=== PATIENT | male | born 1945 | race Caucasian/White ===

== ENCOUNTER 2019-03-08 00:05 | Emergency (ER) | payer OTHER ==
[~2019-03-08] VITALS: Ht 172.7 cm; Wt 90.9 kg
[2019-03-08] MEDS ORDERED: GLUCOTROL 5M5 MG/TAB PO (00:15)
[2019-03-08] MEDS ORDERED: GLUCOPHAGE1000 MG PO (00:15)
[2019-03-08] MEDS ORDERED: LISINOPRIL40 MG PO (00:16)
[2019-03-08] MEDS ORDERED: HCTZ 25MG25 MG PO (00:16)
[2019-03-08] MEDS ORDERED: ROSUVASTATIN CA10 MG PO (00:16)
[2019-03-08] MEDS ORDERED: GLUCOTROL5 M2 PO (00:16)
[2019-03-08] MEDS ORDERED: KRILL OIL 1,001 EACH PO (00:17)
[2019-03-08] MEDS ORDERED: FLAX OIL1000 M1 PO (00:17)
[2019-03-08 01:28] LABS: BASO # 0.1 (0.02-0.10); EOS # 0.3 (0.04-0.40); EOS % 2.9 % (0.0-4.0); HEMATOCRIT 39.7 % (42.0-52.0); HEMOGLOBIN 14.1 g/dL (13.5-18.0); LYMPH# 1.7 (1.50-4.00); MEAN CELL VOLUME 86 fl (78-100); MEAN CORPUSCULAR HEMOGLOBIN 31 pg (27-31); MEAN CORPUSCULAR HGB CONC 36 g/dL (33-37); MEAN PLATELET VOLUME 8.9 fl (7.4-10.4); MONO # 0.8 (0.20-0.80); NEU # 6.9 (1.40-6.50); PLATELET COUNT 227 K/mm3 (130-400); RED CELL DISTRIBUTION WIDTH 11.4 % (11.5-14.5)
[2019-03-08 01:41] LABS: POTASSIUM 4.4 mmol/L (3.5-5.1)
[2019-03-08 01:42] LABS: CALCIUM 8.8 mg/dL (8.3-10.5)
[2019-03-08] MEDS ORDERED: GUAIFEN-CODEINE5 ML PO (02:11)
[2019-03-08 02:22] VITALS: BP 141/90
== END 2019-03-08 02:22 | disposition home or self-care (01) ==
LOC: ED 00:05
PROVIDERS: Family Medicine
DX: J06.9 Acute upper respiratory infection, unspecified (principal); E87.1 Hypo-osmolality and hyponatremia; R07.89 Other chest pain; E11.22 Type 2 diabetes mellitus with diabetic chronic kidney disease; I12.9 Hypertensive chronic kidney disease with stage 1 through stage 4 chronic kidney disease, or unspecified chronic kidney disease; N18.9 Chronic kidney disease, unspecified; Z79.84 Long term (current) use of oral hypoglycemic drugs
CPT/HCPCS: J1885